=== PATIENT | female | born 1955 | race Caucasian/White ===

== ENCOUNTER → 2017-02-01 | Outpatient (CLI) | payer OTHER ==
--- NOTE | 2017-02-10 04:24 | Polysomnography ---
DATE OF STUDY: February 01, 2017 DIAGNOSTIC POLYSOMNOGRAM Referring physician: Sachin Gonzalez MD HISTORY: This is a 61-year-old female with excessive daytime sleepiness and snoring. Patient with past medical history of hypertension, hyperlipidemia, multiple sclerosis, chronic pain, anxiety. Current medications include amitriptyline, vitamins, Zetia, lorazepam, metoprolol, nifedipine, oxcarbazepine, pantoprazole, ranitidine, trazodone, valsartan, clonidine. Patient with BMI of 28.3. Dickinson sleepiness scale score is 4. Patient presents for a diagnostic polysomnogram. FINDINGS: Polysomnogram revealed total sleep time of 384.5 minutes with sleep efficiency of 95.5%. Sleep onset latency was achieved in 3 minutes and REM latency in 121.5 minutes. All sleep stages were noted. Stage N1 3.3%, N2 23.5%, N3 55.5%, and REM 17.7% of total sleep time. Mild snoring was noted. Patient slept 100% of this sleep study on her right side, which is what she noted that she does at home as well. A total of 2 hypopneas and 0 apnea were noted for an apnea hypopnea index of 0.3 events per hour. Lowest oxygen saturation noted on this night was 91%. A total of 31 periodic limb movements were noted for periodic limb movement index of 4.8 events per hour. These movements were not significant appearing. EEG analysis revealed mild increased alpha in sleep. Single lead EKG analysis demonstrated sinus rhythm without any significant abnormality. INTERPRETATION: This is a mildly abnormal polysomnogram due to the presence of: 1. Mild snoring. Multiple factors such as overweight status, thyroid disease, and structural/obstructive abnormalities in the upper airway can be contributory. Evaluation and management of these factors may be helpful. The patient does NOT require CPAP therapy. An ENT examination may be helpful if snoring creates significant lifestyle difficulties; but as demonstrated on this night, the patient snores much less than the majority of individuals. 2. Mild Alpha EEG. Alpha EEG can be seen in patients with chronic fatigue syndrome, fibromyalgia, mood disorders and in some normal patients as well. This is a nonspecific finding. Clinical correlation is recommended. MD KIARA Adan Certified in Sleep Medicine Job#: [id number] [facility] CENTERHiwot
== END ==
LOC: SLEEP 19:42
PROVIDERS: ATTEND Radiology Neuroradiology
DX: G47.33 Obstructive sleep apnea (adult) (pediatric) (principal); R06.83 Snoring
CPT/HCPCS: 95810